=== PATIENT | male | born 1940 | race Two or more races ===

== ENCOUNTER 2022-12-06 05:54 | Emergency (ER) | payer OTHER, MEDICAID ==
[~2022-12-06] VITALS: Ht 175.3 cm; Wt 77.3 kg
[2022-12-06 06:48] VITALS: PULSE 79; RESP 18; O2SAT 94
[2022-12-06 06:49] LABS: Basophils # (auto) 0.1 10 ^3/uL (0-0.2); Basophils % (auto) 0.5 % (0.0-2.0); Eosinophils # (auto) 0 10 ^3/uL (0-0.8); Hematocrit 48.9 % (41.0-53.0); Hemoglobin 16.7 g/dL (13.5-17.5); Lymphocytes # (auto) 0.6 10 ^3/uL (0.4-5.4); Lymphocytes % (auto) 3.9 % (10.0-50.0); Mean Corpuscular Hemoglobin 30.4 pg (28.0-32.0); Mean Corpuscular Hgb Conc. 34.2 g/dL (32.0-36.0); Mean Corpuscular Volume 89.1 fL (80.0-100.0); Monocytes # (auto) 0.9 10 ^3/uL (0-1.3); Monocytes % (auto) 6.1 % (0.0-12.0); Neutrophils # (auto) 13.8 10 ^3/uL (1.6-8.6); Neutrophils % (auto) 89.5 % (37.0-80.0); Nucleated Red Blood Cells % 0.1 %; Red Blood Cells 5.49 10^6/uL (4.5-5.90); Red Cell Distribution Width 14.6 % (11.8-14.3); White Blood Cell 15.4 10^3/uL (4.4-10.8)
[2022-12-06 07:02] LABS: Calcium 8.9 mg/dL (8.5-10.1)
[2022-12-06 07:05] LABS: BUN/Creatinine Ratio 23.5 (10.0-20.0); Bilirubin, Total 1.3 mg/dL (0.2-1.0); Total Protein 7.2 g/dL (6.4-8.2)
[2022-12-06] MEDS ORDERED: ONDANSETRON HCL 4 MG/2 ML VIAL IV ONE (07:30)
[2022-12-06] MEDS ORDERED: MORPHINE SULFATE 4 MG/ML SYR/VIAL IV ONE (07:30)
[2022-12-06 07:46] LABS: INR 1.03 (0.9-1.15)
[2022-12-06] MEDS ORDERED: PIPERACILLIN-TAZOB 3.375GM 100 ML IV ONE (09:00)
[2022-12-06] MEDS ORDERED: SODIUM CHLORIDE 0.9% 1,000 ML IV ONE (10:00)
[2022-12-06 13:05] VITALS: BP 129/71; PULSE 82; RESP 23; TEMP 99.3; O2SAT 94
== END 2022-12-06 13:25 | disposition short-term general hospital (02) ==
LOC: EDBD 05:54 → ER 05:54
DX: K81.9 Cholecystitis, unspecified (principal); M19.90 Unspecified osteoarthritis, unspecified site; I10 Essential (primary) hypertension; Z20.822 Contact with and (suspected) exposure to COVID-19
CPT/HCPCS: 36415; 71250; 74176; 80053; 83605; 83690; 84484; 85025; 85610; 85730; 87040; 87426; 93005; 96365; 96366; 96375; 99285; J2270; J2405; J2543; J7030